=== PATIENT | female | born 1990 | race Caucasian/White ===

== ENCOUNTER 2017-02-07 15:09 | Emergency (ER) | payer OTHER ==
[2017-02-07 15:19] VITALS: BP 117/70
[2017-02-07] MEDS ORDERED: Cyclobenzaprine TAB* 10 MG PO ONE (18:01)
[2017-02-07] MEDS ORDERED: Acetaminophen TAB* 325 MG PO ONE (18:01)
--- NOTE | 2017-02-07 18:11 | ED ---
Back Pain - HPI Summary HPI Summary: Patient hurt her back two nights ago at work when she lifted a bag of food she has lifted many times. She felt a pop and has a pinching pain at her mid back. No SOB, CP, N/T or prior injury. - History of Current Complaint Chief Complaint: EDBackInjuryPain Stated Complaint: BACK INJURY/PAIN Time Seen by Provider: 02/07/17 17:34 Hx Obtained From: Patient Hx Last Menstrual Period: 06/10/15 Onset/Duration: Sudden Onset Onset/Duration: Started Days Ago - 2 Timing: Constant Back Pain Location: Is Discrete @ - mid back Severity Initially: Moderate Severity Currently: Severe Pain Intensity: 9 Character: Aching, Spasmodic Aggravating Symptom(s): Movement Associated Signs And Symptoms: Positive: Negative - Allergies/Home Medications Allergies/Adverse Reactions: Allergies Allergy/AdvReac Type Severity Reaction Status Date / Time Gabapentin [From Neurontin] Allergy Severe Anaphylatic Verified 09/06/15 17:18 Shock Zolpidem [From Ambien] Allergy Severe Anaphylatic Verified 09/06/15 17:18 Shock Penicillins Allergy Intermediate Hives Verified 09/06/15 17:18 Amoxicillin Allergy Hives/Diff. Verified 09/06/15 17:18 Breathing/I tching Ketorolac Tromethamine AdvReac Intermediate Headache Verified 09/06/15 17:18 [From Toradol] Tramadol AdvReac Intermediate Headache Verified 09/06/15 17:18 PMH/Surg Hx/FS Hx/Imm Hx Endocrine/Hematology History: Denies: Hx Anticoagulant Therapy, Hx Diabetes, Hx Thyroid Disease Cardiovascular History: Denies: Hx Congestive Heart Failure, Hx Hypertension, Hx Pacemaker/ICD Respiratory History: Denies: Hx Asthma, Hx Chronic Obstructive Pulmonary Disease (COPD) GI History: Denies: Other GI Disorders History: Reports: Hx Renal Disease - KIDNEY STONE, Other Problems/ Disorders - KIDNEY INFECTIONS Sensory History: Reports: Hx Contacts or Glasses Denies: Hx Hearing Aid Opthamlomology History: Reports: Hx Contacts or Glasses Neurological History: Reports: Other Neuro Impairments/Disorders - 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 Denies: Hx Dementia, Hx Seizures Psychiatric History: Denies: Hx Panic Disorder, Hx Substance Abuse - Surgical History Surgery Procedure, Year, and Place: Ears, as a child - Immunization History Date of Tetanus Vaccine: UTD Date of Influenza Vaccine: Fall 2013 Infectious Disease History: No Infectious Disease History: Denies: Hx Hepatitis, Hx Human Immunodeficiency Virus (HIV), History Other Infectious Disease, Traveled Outside the [place] in Last 30 Days - Family History Known Family History: Positive: None - Social History Occupation: Employed Part-time Lives: With Family Alcohol Use: Rare Substance Use Type: Reports: None Smoking Status (MU): Current Every Day Smoker Amount Used/How Often: about 1/2 ppd Cessation Counseling: Patient Advised to Stop Review of Systems Positive: Myalgia Negative: Paresthesia, Numbness All Other Systems Reviewed And Are Negative: Yes Physical Exam Triage Information Reviewed: Yes Vital Signs On Initial Exam: Initial Vitals Temp Pulse Resp BP Pulse Ox 98.0 F 96 20 117/70 100 02/07/17 15:17 02/07/17 15:17 02/07/17 15:17 02/07/17 15:17 02/07/17 15:17 Vital Signs Reviewed: Yes Appearance: Positive: Well-Appearing, No Pain Distress, Well-Nourished Skin: Positive: Warm, Skin Color Reflects Adequate Perfusion, Dry, Soft Head/Face: Positive: Normal Head/Face Inspection Eyes: Positive: EOMI, LOWELL ENT: Positive: Hearing grossly normal Neck: Positive: Supple, Nontender Respiratory/Lung Sounds: Positive: Clear to Auscultation, Breath Sounds Present Cardiovascular: Positive: RRR Musculoskeletal: Positive: Strength/ROM Intact, Pain @ - TTP bilateral thoracic spine Neurological: Positive: Sensory/Motor Intact, Alert, Oriented to Person Place, Time, NV Bundle Intact Distally, Normal Gait Psychiatric: Positive: Affect/Mood Appropriate AVPU Assessment: Alert Diagnostics - Vital Signs Vital Signs Temp Pulse Resp BP Pulse Ox 02/07/17 15:19 98.0 F 112 20 117/70 100 02/07/17 15:17 98.0 F 96 20 117/70 100 - Laboratory Lab Statement: Any lab studies that have been ordered have been reviewed, and results considered in the medical decision making process. Back Pain Course/Dx - Diagnoses Differential Diagnosis/HQI/PQRI: Positive: Cauda Equina Syndrome, Compressive Cord Syndrome, Herniated Disc, Strain, Sprain Provider Diagnoses: Back pain Discharge - Discharge Plan Condition: Stable Disposition: HOME Prescriptions: Cyclobenzaprine TAB* [Flexeril 10 MG TAB*] 10 mg PO TID PRN #15 tab PRN Reason: Pain Patient Education Materials: Acute Low Back Pain (ED) Forms: *Work Release Referrals: Nieves Azul NP [Primary Care Provider] - Additional Instructions: Please take Tylenol and the muscle relaxer in combination with rest and heat to allow your back to heal. Follow-up with your primary care provider if symptoms persist.
== END 2017-02-07 18:20 | disposition home or self-care (01) ==
LOC: ED 15:09
DX: M54.9 Dorsalgia, unspecified (principal)
CPT/HCPCS: 99282; A9270-GY

== ENCOUNTER 2017-05-18 11:16 | Emergency (ER) | payer OTHER ==
[2017-05-18] MEDS ORDERED: Ondansetron ODT TAB* 4 MG PO ONE (12:59)
[2017-05-18 13:32] LABS: Hematocrit 37 % (35-47); Hemoglobin 12.8 g/dl (12.0-16.0); Mean Corpuscular HGB Conc 34 g/dl (31-36); Mean Corpuscular Hemoglobin 31 pg (27-31); Mean Corpuscular Volume 89 fL (80-97); Mean Platelet Volume 8 um3 (7.4-10.4); Red Blood Count 4.19 10^6/ul (4.0-5.4); Red Cell Distribution Width 13 % (10.5-15); White Blood Count 8.9 10^3/ul (3.5-10.8)
[2017-05-18 13:52] LABS: BUN/Creatinine Ratio 18.1 (8-20); Calcium 8.9 mg/dL (8.6-10.3); EGFR African American 104.5 (>60); EGFR Non-African American 81.3 (>60); Globulin 2.2 g/dL (2-4); Potassium 3.7 mmol/L (3.5-5.0); Total Bilirubin 0.3 mg/dL (0.2-1.0); Total Protein 6.2 g/dL (6.4-8.9)
[2017-05-18 14:16] LABS: TSH (Thyroid Stimulating Horm) 1.38 mcIU/mL (0.34-5.60)
--- NOTE | 2017-05-18 14:16 | ED ---
Throat Pain/Nasal Congestion - HPI Summary HPI Summary: 27 female presents to ED with complaints of having a black tongue that was noticed this morning while at work. Patient states it was not like that yesterday. She denies eating any black foods, new foods, new medications. No PMHx. No medications. No recent antibiotic use. No known history of adrenal issues or vitamin deficiency. Denies diarrhea, dermatitis and memory issues. Denies tongue being sore or painful. No difficulty swallowing or sore throat. Denies fever/chills. Does admit to some nausea, no vomiting. States she had a headache which she took vicodin for on an empty stomach and believes that caused it. No other complaints at this time. Has never had this before. Does smoke cigarettes. - History of Current Complaint Chief Complaint: EDGeneral Time Seen by Provider: 05/18/17 12:10 Hx Obtained From: Patient Onset/Duration: Sudden Onset, Lasting Hours - 2-3 Associated Signs And Symptoms: Positive: Negative, Nasal Discharge - allergy related Cough: None Related History: Seasonal Allergies, Smoking - Allergies/Home Medications Allergies/Adverse Reactions: Allergies Allergy/AdvReac Type Severity Reaction Status Date / Time Gabapentin [From Neurontin] Allergy Severe Anaphylatic Verified 09/06/15 17:18 Shock Zolpidem [From Ambien] Allergy Severe Anaphylatic Verified 09/06/15 17:18 Shock Penicillins Allergy Intermediate Hives Verified 09/06/15 17:18 Amoxicillin Allergy Hives/Diff. Verified 09/06/15 17:18 Breathing/I tching Ketorolac Tromethamine AdvReac Intermediate Headache Verified 09/06/15 17:18 [From Toradol] Tramadol AdvReac Intermediate Headache Verified 09/06/15 17:18 PMH/Surg Hx/FS Hx/Imm Hx Endocrine/Hematology History: Denies: Hx Anticoagulant Therapy, Hx Diabetes, Hx Thyroid Disease Cardiovascular History: Denies: Hx Congestive Heart Failure, Hx Hypertension, Hx Pacemaker/ICD Respiratory History: Denies: Hx Asthma, Hx Chronic Obstructive Pulmonary Disease (COPD) GI History: Denies: Other GI Disorders History: Reports: Hx Renal Disease - KIDNEY STONE, Other Problems/ Disorders - KIDNEY INFECTIONS Sensory History: Reports: Hx Contacts or Glasses Denies: Hx Hearing Aid Opthamlomology History: Reports: Hx Contacts or Glasses Neurological History: Reports: Other Neuro Impairments/Disorders - 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 Denies: Hx Dementia, Hx Seizures Psychiatric History: Denies: Hx Panic Disorder, Hx Substance Abuse - Surgical History Surgery Procedure, Year, and Place: Ears, as a child - Immunization History Date of Tetanus Vaccine: UTD Date of Influenza Vaccine: Fall 2013 Immunizations Up to Date: Yes Infectious Disease History: No Infectious Disease History: Denies: Hx Hepatitis, Hx Human Immunodeficiency Virus (HIV), History Other Infectious Disease, Traveled Outside the [place] in Last 30 Days - Family History Known Family History: Positive: None - Social History Alcohol Use: Rare Substance Use Type: Reports: None Smoking Status (MU): Current Every Day Smoker Type: Cigarettes Amount Used/How Often: about 1/2 ppd Review of Systems Constitutional: Negative Positive: Other - black tongue Cardiovascular: Negative Respiratory: Negative Gastrointestinal: Negative Skin: Negative Neurological: Negative All Other Systems Reviewed And Are Negative: Yes Physical Exam Triage Information Reviewed: Yes Vital Signs On Initial Exam: Initial Vitals Temp Pulse Resp BP Pulse Ox 96.4 F 76 17 114/66 99 05/18/17 11:17 05/18/17 11:17 05/18/17 11:17 05/18/17 11:17 05/18/17 11:17 Vital Signs Reviewed: Yes Appearance: Positive: Well-Appearing, No Pain Distress, Well-Nourished Skin: Positive: Warm, Skin Color Reflects Adequate Perfusion, Dry. Negative: Cold, Soft, Pale, Erythema @ Head/Face: Positive: Normal Head/Face Inspection Eyes: Positive: Conjunctiva Clear ENT: Positive: Hearing grossly normal, Pharynx normal - besides "black hairy" tongue appearance, non tender does not scrap off, no other sores, TMs normal, Trismus. Negative: Tonsillar swelling, Tonsillar exudate Dental: Positive: Gross Decay/Caries @, Dental Fracture @, Other - poor dental hygiene, odor noted. Negative: Cervical Lymphadenopathy, Bleeding, Oropharynx Neck: Positive: Supple, Nontender, No Lymphadenopathy Respiratory/Lung Sounds: Positive: Clear to Auscultation, Breath Sounds Present. Negative: Rales, Rhonchi, Wheezes Cardiovascular: Positive: Normal, RRR, Pulses are Symmetrical in both Upper and Lower Extremities. Negative: Murmur, Rub Abdomen Description: Positive: Nontender Bowel Sounds: Positive: Present Musculoskeletal: Positive: Normal, Strength/ROM Intact Neurological: Positive: Normal, Sensory/Motor Intact, Alert, Oriented to Person Place, Time, Normal Gait - Bell Coma Scale Coma Scale Total: 15 Diagnostics - Vital Signs Vital Signs Temp Pulse Resp BP Pulse Ox 05/18/17 12:03 96.4 F 76 17 114/66 98 05/18/17 11:17 96.4 F 76 17 114/66 99 - Laboratory Lab Results: Lab Results 05/18/17 05/18/17 Range/Units 13:15 13:15 WBC 8.9 (3.5-10.8) 10^3/ul RBC 4.19 (4.0-5.4) 10^6/ul Hgb 12.8 (12.0-16.0) g/dl Hct 37 (35-47) % MCV 89 (80-97) fL MCH 31 (27-31) pg MCHC 34 (31-36) g/dl RDW 13 (10.5-15) % Plt Count 251 (150-450) 10^3/ul MPV 8 (7.4-10.4) um3 Neut % (Auto) 58.8 (38-83) % Lymph % (Auto) 32.3 (25-47) % Dupage % (Auto) 4.5 (1-9) % Eos % (Auto) 3.4 (0-6) % Baso % (Auto) 1.0 (0-2) % Absolute Neuts (auto) 5.2 (1.5-7.7) 10^3/ul Absolute Lymphs (auto) 2.9 (1.0-4.8) 10^3/ul Absolute Monos (auto) 0.4 (0-0.8) 10^3/ul Absolute Eos (auto) 0.3 (0-0.6) 10^3/ul Absolute Basos (auto) 0.1 (0-0.2) 10^3/ul Absolute Nucleated RBC 0 10^3/ul Nucleated RBC % 0 Sodium 136 (133-145) mmol/L Potassium 3.7 (3.5-5.0) mmol/L Chloride 105 (101-111) mmol/L Carbon Dioxide 26 (22-32) mmol/L Anion Gap 5 (2-11) mmol/L BUN 15 (6-24) mg/dL Creatinine 0.83 (0.51-0.95) mg/dL Est GFR ( Amer) 104.5 (>60) Est GFR (Non-Af Amer) 81.3 (>60) BUN/Creatinine Ratio 18.1 (8-20) Glucose 86 (70-100) mg/dL Calcium 8.9 (8.6-10.3) mg/dL Magnesium 2.0 (1.9-2.7) mg/dL Total Bilirubin 0.30 (0.2-1.0) mg/dL AST 17 (13-39) U/L ALT 10 (7-52) U/L Alkaline Phosphatase 30 L (34-104) U/L Total Protein 6.2 L (6.4-8.9) g/dL Albumin 4.0 (3.2-5.2) g/dL Globulin 2.2 (2-4) g/dL Albumin/Globulin Ratio 1.8 (1-3) TSH Pending Result Diagrams: 05/18/17 13:15 05/18/17 13:15 Lab Statement: Any lab studies that have been ordered have been reviewed, and results considered in the medical decision making process. EENT Course/Dx - Course Course Of Treatment: basic labs, TSH and vitamin b3 obtained. labs unremarkable. no concern for emergent etiology. no other symptoms and ruled out causes of black tongue including pellagra, medication side effect, recent antibiotic use, infection. possible poor oral hygeine related. follow up with pcp for further work up and rule out addisons although no other symptoms. aware of worsening signs and symptoms to watch out for. brush and keep good oral hygeine, mouth wash, salt water swishes. - Differential Diagnoses Differential Diagnoses: Fractured Tooth, Other - dental caries, black tongue, pellagra, infection, medication side effect, sandor's - Diagnoses Provider Diagnoses: Black hairy tongue - Provider Notifications Discussed Care Of Patient With: Dr Berg Discharge - Discharge Plan Condition: Stable Disposition: HOME Referrals: Nieves Azul NP [Primary Care Provider] - Additional Instructions: follow up with primary care provider for further testing if symptoms do not improve. keep good oral hygiene. use mouth wash, swish with salt iniguez and brush tongue when brushing teeth. drink plenty of fluids. if you develop new or worsening symptoms please seek medical attention. if your vitamin level is not normal you will be called once results are obtained.
[2017-05-18 14:25] VITALS: BP 111/62
== END 2017-05-18 14:24 | disposition home or self-care (01) ==
LOC: ED 11:16
DX: K14.3 Hypertrophy of tongue papillae (principal); F17.210 Nicotine dependence, cigarettes, uncomplicated
CPT/HCPCS: 36415; 80053; 83735; 84443; 84591; 85025; 99282; A9270-GY

== ENCOUNTER 2017-11-10 15:34 | Emergency (ER) | payer OTHER ==
[2017-11-10 15:48] VITALS: BP 122/83
--- NOTE | 2017-11-10 15:50 | UC ---
Respiratory Complaint HPI - HPI Summary HPI Summary: Pt presents with dry cough that feels "deep" and a mild sore throat for the last 3 days. Overall feels fatigued and "worn out". She has not taken anything OTC for her symptoms. Denies fever, chills, sinus symptoms, SOB, chest pain, abdominal pain, n/v/d/c. She is still smoking daily. - History of Current Complaint Chief Complaint: UCRespiratory Stated Complaint: SOB,RIB PAIN Time Seen by Provider: 11/10/17 15:50 Hx Obtained From: Patient Hx Last Menstrual Period: 10/05/2017 Onset/Duration: Gradual Onset Severity Initially: Severe Severity Currently: Severe Pain Intensity: 8 Pain Scale Used: 0-10 Numeric Character: Cough: Nonproductive - Allergies/Home Medications Allergies/Adverse Reactions: Allergies Allergy/AdvReac Type Severity Reaction Status Date / Time amoxicillin Allergy Hives/Diff. Verified 11/10/17 15:50 Breathing/I tching gabapentin Allergy Anaphylatic Verified 11/10/17 15:49 Shock ketorolac [From Toradol] Allergy Hives Verified 11/10/17 15:51 Penicillins Allergy Hives/Diff. Verified 11/10/17 15:50 Breathing/I tching zolpidem [From Ambien] Allergy Hives Verified 11/10/17 15:50 Home Medications: Home Medications Acetaminophen [Tylenol] 325 mg PO 11/10/17 [History] PMH/Surg Hx/FS Hx/Imm Hx Other History Of: Negative For: Anticoagulant Therapy - Surgical History Surgical History: Yes Surgery Procedure, Year, and Place: Ears, as a child - Family History Known Family History: Positive: None - Social History Occupation: Employed Full-time Lives: With Family Alcohol Use: Rare Substance Use Type: None Smoking Status (MU): Current Every Day Smoker Type: Cigarettes Amount Used/How Often: about 1/2 ppd Household Exposure Type: Cigarettes - Immunization History Most Recent Influenza Vaccination: 2014 Most Recent Tetanus Shot: 2014 Review of Systems Constitutional: Fatigue Skin: Negative Eyes: Negative ENT: Sore Throat Respiratory: Cough Cardiovascular: Negative Gastrointestinal: Negative Neurovascular: Negative Musculoskeletal: Negative Neurological: Negative Psychological: Negative All Other Systems Reviewed And Are Negative: Yes Physical Exam - Summary Physical Exam Summary: GENERAL: NAD. WDWN. No pain distress. SKIN: No rashes, sores, ulcers, masses, lesions. HEENT: Head: AT/NC Eyes: Conjunctiva clear without inflammation or discharge. Ears: Hearing grossly normal. TMs intact, no bulging, erythema, or edema. Nose: Nasal mucosa pink and moist. NTTP maxillary and frontal sinus. Throat: Posterior oropharynx without exudates, erythema, or tonsillar enlargement. Uvula midline. NECK: Supple. Nontender. No lymphadenopathy. CHEST: Mild wheezing throughout. CTAB. No r/r. No accessory muscle use. Breathing comfortably and in no distress. CV: RRR. Without m/r/g. Pulses intact. Brisk cap refill. NEURO: Alert. CN II-XII grossly intact. PSYCH: Age appropriate behavior. Triage Information Reviewed: Yes Vital Signs: Initial Vital Signs Temp 98.0 F 11/10/17 15:42 Pulse 97 11/10/17 15:42 Resp 20 11/10/17 15:42 BP 122/83 11/10/17 15:42 Pulse Ox 97 11/10/17 15:42 Diagnostic Evaluation - Laboratory O2 Sat by Pulse Oximetry: 97 Re-Evaluation - Re-Evaluation First Eval Re-Evaluation Time: 16:35 Change: Improved - Pt reports feeling easier to breath. Respiratory Course/Dx - Course Course Of Treatment: CXR. IMPRESSION: No active cardiopulmonary disease is noted. Duoneb with good improvement. Rx for azithromycin and albuterol - Differential Dx/Diagnosis Provider Diagnoses: Bronchitis Discharge - Discharge Plan Condition: Stable Disposition: HOME Prescriptions: Albuterol HFA INHALER* [Ventolin HFA Inhaler*] 1 - 2 puff INH Q6H PRN #1 mdi PRN Reason: Sob/Wheezing Azithromycin TAB* [Zithromax TAB (Z-KRISTIAN) 250 mg #6 tabs] 2 tab PO .TODAY, THEN 1 DAILY #1 kristian Patient Education Materials: Acute Bronchitis (ED) Forms: *Work Release Referrals: Nieves Azul NP [Primary Care Provider] - Additional Instructions: If you develop a fever, shortness of breath, chest pain, new or worsening symptoms - please call your PCP or go to the ED.
[2017-11-10] MEDS ORDERED: Albuterol/Ipratropium NEB.SOL* Albuterol 2.5 MG/Ipratropium 0.5 MG 3 ML INH ONE (15:56)
--- NOTE | 2017-11-10 16:27 | RAD ---
Indication: Cough. Comparison is made with previous exam dated September 25, 2006 2 views of the chest including dual energy PA views demonstrates no mediastinal shift. Heart is of normal size and configuration. Lung vides demonstrate no pleural fluid, pneumonia or pneumothorax. IMPRESSION: No active cardiopulmonary disease is noted.
== END 2017-11-10 16:45 | disposition home or self-care (01) ==
LOC: UCEAST 15:34
DX: J40 Bronchitis, not specified as acute or chronic (principal); Z88.5 Allergy status to narcotic agent; Z88.0 Allergy status to penicillin; Z88.8 Allergy status to other drugs, medicaments and biological substances; F17.210 Nicotine dependence, cigarettes, uncomplicated
CPT/HCPCS: 71046; 99212; A9270-GY; G0463

== ENCOUNTER 2017-12-27 10:51 | Emergency (ER) | payer OTHER ==
--- NOTE | 2017-12-27 14:02 | RAD ---
HISTORY: Low back pain, history of spurs COMPARISONS: July 31, 2012 TECHNIQUE: Multiple contiguous axial CT scans were obtained of the lumbar spine without intravenous contrast, with coronal and sagittal multiplanar reformations. FINDINGS: SPINAL CANAL: Evaluation of the central canal is limited on CT technique; however, there is no obvious canalicular mass or epidural hemorrhage. ALIGNMENT: There is trace anterolisthesis of L4 on L5. VERTEBRAL BODIES: There are bilateral pars defects at L5. JOINTS: Unremarkable MUSCULATURE: Unremarkable INTERVERTEBRAL DISCS: There is diffuse loss of intervertebral disc height throughout the spine. AXIAL IMAGES: T12-L1: There is no osseous neural foraminal narrowing or central canal stenosis. L1-L2: There is no osseous neural foraminal narrowing or central canal stenosis. L2-L3: There is no osseous neural foraminal narrowing or central canal stenosis. L3-L4: There is mild disc bulge. There is no osseous neural foraminal narrowing or central canal stenosis. L4-L5: There is a broad-based disc bulge that is eccentric to the right. There is no significant neural foraminal narrowing or central canal stenosis. L5-S1: There is a broad-based disc/rolled disc. There is mild bilateral neural foraminal narrowing. There is no significant central canal stenosis. SOFT TISSUES: An IUD is noted. OTHER: None IMPRESSION: 1. 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 2. MILD DEGENERATIVE DISC DISEASE.
[2017-12-27 15:05] VITALS: BP 107/67
--- NOTE | 2017-12-27 15:40 | ED ---
Back Pain - HPI Summary HPI Summary: Patient is a 27-year-old female presenting to the ED with chief complaint of left flank pain. She states she twisted it wrong a few days ago and has been dealing with sharp pains since that time. She denies any numbness or tingling. The pain radiates down into the buttocks and the posterior leg. She has had a second history of such. She took Flexeril at home without relief. Denies any urinary symptoms. I've never heard denies any foot drop or weakness. - History of Current Complaint Chief Complaint: EDBackInjuryPain Stated Complaint: BACK PAIN Time Seen by Provider: 12/27/17 12:18 Hx Obtained From: Patient Hx Last Menstrual Period: 10/05/2017 Onset/Duration: Sudden Onset Onset/Duration: Started Hours Ago Timing: Constant Back Pain Location: Is Discrete @ - Left flank Pain Intensity: 6 Pain Scale Used: 0-10 Numeric Character: Aching Aggravating Symptom(s): Movement, Lifting, Bending, Walking Alleviating Symptom(s): Rest, Position - Risk Factors AAA Risk Factors: Negative TAD Risk Factors: Negative Cauda Equina Risk Factors: Negative Epidural Abscess Risk Factors: Negative - Allergies/Home Medications Allergies/Adverse Reactions: Allergies Allergy/AdvReac Type Severity Reaction Status Date / Time amoxicillin Allergy Hives/Diff. Verified 12/27/17 10:59 Breathing/I tching gabapentin Allergy Anaphylatic Verified 12/27/17 10:59 Shock ketorolac [From Toradol] Allergy Hives Verified 12/27/17 10:59 Penicillins Allergy Hives/Diff. Verified 12/27/17 10:59 Breathing/I tching zolpidem [From Ambien] Allergy Hives Verified 12/27/17 10:59 PMH/Surg Hx/FS Hx/Imm Hx Previously Healthy: Yes Endocrine/Hematology History: Denies: Hx Anticoagulant Therapy, Hx Diabetes, Hx Thyroid Disease Cardiovascular History: Denies: Hx Congestive Heart Failure, Hx Hypertension, Hx Pacemaker/ICD Respiratory History: Denies: Hx Asthma, Hx Chronic Obstructive Pulmonary Disease (COPD) GI History: Denies: Other GI Disorders History: Reports: Hx Renal Disease - KIDNEY STONE, Other Problems/ Disorders - KIDNEY INFECTIONS Sensory History: Reports: Hx Contacts or Glasses Denies: Hx Hearing Aid Opthamlomology History: Reports: Hx Contacts or Glasses Neurological History: Reports: Other Neuro Impairments/Disorders - 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 Denies: Hx Dementia, Hx Seizures Psychiatric History: Denies: Hx Panic Disorder, Hx Substance Abuse - Surgical History Surgery Procedure, Year, and Place: Ears, as a child - Immunization History Date of Tetanus Vaccine: UTD Date of Influenza Vaccine: Fall 2013 Hx Pertussis Vaccination: No Immunizations Up to Date: Unable to Obtain/Confirm Infectious Disease History: No Infectious Disease History: Denies: Hx Hepatitis, Hx Human Immunodeficiency Virus (HIV), History Other Infectious Disease, Traveled Outside the [place] in Last 30 Days - Family History Known Family History: Positive: None - Social History Occupation: Employed Full-time Lives: With Family Alcohol Use: Rare Hx Substance Use: No Substance Use Type: Reports: None Hx Tobacco Use: Yes Smoking Status (MU): Current Every Day Smoker Type: Cigarettes Amount Used/How Often: about 1/2 ppd Review of Systems Constitutional: Negative Negative: Fever, Chills, Fatigue, Skin Diaphoresis Eyes: Negative Cardiovascular: Negative Respiratory: Negative Genitourinary: Negative Positive: no symptoms reported, see HPI Positive: Arthralgia Neurological: Negative All Other Systems Reviewed And Are Negative: Yes Physical Exam Triage Information Reviewed: Yes Vital Signs On Initial Exam: Initial Vitals Temp Pulse Resp BP Pulse Ox 98.0 F 67 16 117/71 98 12/27/17 10:56 12/27/17 10:56 12/27/17 10:56 12/27/17 10:56 12/27/17 10:56 Vital Signs Reviewed: Yes Appearance: Positive: Well-Appearing, No Pain Distress Skin: Positive: Warm, Skin Color Reflects Adequate Perfusion Head/Face: Positive: Normal Head/Face Inspection Eyes: Positive: EOMI, LOWELL, Conjunctiva Clear Neck: Positive: Supple, No Lymphadenopathy Respiratory/Lung Sounds: Positive: Clear to Auscultation, Breath Sounds Present Cardiovascular: Positive: Normal, RRR, Pulses are Symmetrical in both Upper and Lower Extremities Musculoskeletal: Positive: Normal, Strength/ROM Intact, Pain @ - L flank Neurological: Positive: Speech Normal Psychiatric: Positive: Normal Diagnostics - Vital Signs Vital Signs Temp Pulse Resp BP Pulse Ox 12/27/17 15:04 98.7 F 67 16 107/67 100 12/27/17 10:56 98.0 F 67 16 117/71 98 - Laboratory Lab Statement: Any lab studies that have been ordered have been reviewed, and results considered in the medical decision making process. Back Pain Course/Dx - Course Course Of Treatment: During the course of treatment, the patient is evaluated for left flank pain. She denies any urinary symptoms. I have offered a muscle relaxer, but she states she is alert he tried Flexeril without relief. She is in no acute distress on arrival. She states she has been having symptoms like this for several days, not worse or better with movement or better with rest. I have offered a different muscle relaxer for her in the ED and she accepts. She is requesting a CT of her spine due to having "spurs" and spondylosis and feels this may have been getting worse. Denies any bladder or bowel dysfunction. CT obtained which shows spondylosis and spondylolisthesis at L5 to S1. Otherwise normal CT. She is given tizanidine and encouraged moist heat. She is okay at this time for discharge. She will follow-up with her PCP. - Diagnoses Differential Diagnosis/HQI/PQRI: Positive: Strain, Sprain Provider Diagnoses: Muscle spasm Discharge - Sign-Out/Discharge Documenting (check all that apply): Discharge/Admit/Transfer - Discharge Plan Condition: Stable Disposition: HOME Prescriptions: tiZANidine TAB* [Zanaflex TAB*] 2 mg PO TID #15 tab Patient Education Materials: Low Back Strain (ED), Muscle Spasm (ED), Lower Back Exercises (ED) Referrals: [facility] [Primary Care Provider] - Additional Instructions: Please follow up with PCP Tizanidine may be used up to 3 times daily Moist heat to the area Low back exercises Ibuprofen 600 mg 3 times daily - Billing Disposition and Condition Condition: STABLE Disposition: HOME
== END 2017-12-27 15:04 | disposition home or self-care (01) ==
LOC: ED 10:51
DX: M62.838 Other muscle spasm (principal); R10.84 Generalized abdominal pain
CPT/HCPCS: 72131; 99282

== ENCOUNTER 2018-03-07 19:30 | Emergency (ER) | payer OTHER ==
[2018-03-07] MEDS ORDERED: Docusate LIQ* 100 MG/10 ML UDC PO ONE (19:47)
--- NOTE | 2018-03-07 19:57 | ED ---
Throat Pain/Nasal Congestion - HPI Summary HPI Summary: Complains of sudden onset right ear pain while trying to flush ear with bulb and [id number] ear wax softener 30 minutes ago. Pain with movement of jaw. Denies fever, ZIMMERMAN, sore throat, cough, CP, SOB, N/V/V abdominal pain, change in urinary BM. - History of Current Complaint Chief Complaint: EDEarPain Time Seen by Provider: 03/07/18 19:38 Hx Obtained From: Patient Onset/Duration: Sudden Onset Severity: Moderate Associated Signs And Symptoms: Positive: Negative Cough: None - Allergies/Home Medications Allergies/Adverse Reactions: Allergies Allergy/AdvReac Type Severity Reaction Status Date / Time amoxicillin Allergy Hives/Diff. Verified 12/27/17 10:59 Breathing/I tching gabapentin Allergy Anaphylatic Verified 12/27/17 10:59 Shock ketorolac [From Toradol] Allergy Hives Verified 12/27/17 10:59 Penicillins Allergy Hives/Diff. Verified 12/27/17 10:59 Breathing/I tching zolpidem [From Ambien] Allergy Hives Verified 12/27/17 10:59 PMH/Surg Hx/FS Hx/Imm Hx Endocrine/Hematology History: Denies: Hx Anticoagulant Therapy, Hx Diabetes, Hx Thyroid Disease Cardiovascular History: Denies: Hx Congestive Heart Failure, Hx Hypertension, Hx Pacemaker/ICD Respiratory History: Denies: Hx Asthma, Hx Chronic Obstructive Pulmonary Disease (COPD) GI History: Denies: Other GI Disorders History: Reports: Hx Renal Disease - KIDNEY STONE, Other Problems/ Disorders - KIDNEY INFECTIONS Sensory History: Reports: Hx Contacts or Glasses Denies: Hx Hearing Aid Opthamlomology History: Reports: Hx Contacts or Glasses Neurological History: Reports: Other Neuro Impairments/Disorders - 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 Denies: Hx Dementia, Hx Seizures Psychiatric History: Denies: Hx Panic Disorder, Hx Substance Abuse - Surgical History Surgery Procedure, Year, and Place: Ears, as a child - Immunization History Date of Tetanus Vaccine: UTD Date of Influenza Vaccine: Fall 2013 Infectious Disease History: No Infectious Disease History: Denies: Hx Hepatitis, Hx Human Immunodeficiency Virus (HIV), History Other Infectious Disease, Traveled Outside the [place] in Last 30 Days - Family History Known Family History: Positive: None - Social History Alcohol Use: Rare Hx Substance Use: No Substance Use Type: Reports: None Hx Tobacco Use: Yes Smoking Status (MU): Current Every Day Smoker Type: Cigarettes Amount Used/How Often: about 1/2 ppd Review of Systems Constitutional: Negative Eyes: Negative Positive: Ear Ache Cardiovascular: Negative Respiratory: Negative Gastrointestinal: Negative Genitourinary: Negative Musculoskeletal: Negative Skin: Negative Neurological: Negative Psychological: Normal All Other Systems Reviewed And Are Negative: Yes Physical Exam - Summary Physical Exam Summary: Right ear appears normal on exam. Tenderness to external ear when scope. TM appears normal, no swelling or purulent discharge noted in external canal. Wax present deep in the ear canal. Triage Information Reviewed: Yes Vital Signs On Initial Exam: Initial Vitals Temp Pulse Resp BP Pulse Ox 97.4 F 72 22 120/92 100 03/07/18 19:33 03/07/18 19:33 03/07/18 19:33 03/07/18 19:33 03/07/18 19:33 Vital Signs Reviewed: Yes Appearance: Positive: Well-Appearing Skin: Positive: Warm Head/Face: Positive: Normal Head/Face Inspection Eyes: Positive: Normal ENT: Positive: TMs normal, Other - cerumen deep in rt ear canal Neck: Positive: Supple Respiratory/Lung Sounds: Positive: Clear to Auscultation Cardiovascular: Positive: Normal Abdomen Description: Positive: Nontender Musculoskeletal: Positive: Normal Neurological: Positive: Normal Psychiatric: Positive: Normal AVPU Assessment: Alert - Bell Coma Scale Best Eye Response: 4 - Spontaneous Best Motor Response: 6 - Obeys Commands Best Verbal Response: 5 - Oriented Coma Scale Total: 15 Diagnostics - Vital Signs Vital Signs Temp Pulse Resp BP Pulse Ox 03/07/18 19:33 97.4 F 72 22 120/92 100 - Laboratory Lab Statement: Any lab studies that have been ordered have been reviewed, and results considered in the medical decision making process. Re-Evaluation - Re-Evaluation 1 Re-Evaluation Time: 21:53 Comment: wax removed from esar. provided no relief. EENT Course/Dx - Course Course Of Treatment: Complains of sudden onset right ear pain while trying to flush ear with bulb and [id number] ear wax softener 30 minutes ago. Pain with movement of jaw. Denies fever, ZIMMERMAN, sore throat, cough, CP, SOB, N/V/V abdominal pain, change in urinary BM. Right ear appears normal on exam. Tenderness to external ear when scope. TM appears normal, no swelling or purulent discharge noted in external canal. Wax present deep in the ear canal. removal of ear wax providefd no relief. Ciprodex and azithromycin here in ED. RX for azithromycin and tramadol. Follow up with ENT Dr Boss - Diagnoses Provider Diagnoses: Otitis externa Discharge - Sign-Out/Discharge Documenting (check all that apply): Discharge/Admit/Transfer - Discharge Plan Condition: Stable Disposition: HOME Prescriptions: Azithromycin 250 mg PO DAILY 5 Days #4 tablet Tramadol HCl 50 mg PO TID 4 Days #6 tablet MDD 3 Referrals: Mary Ramirez NP [Primary Care Provider] - Jakub Boss MD [Medical Doctor] - Additional Instructions: 3 antibiotic drops in right ear twice a day. Take oral antibiotics as directed. Follow up with ENT Dr Boss tomorrow if you do not have ENT already. Return to the ED for any new or worsening symptoms. - Billing Disposition and Condition Condition: STABLE Disposition: Home
[2018-03-07] MEDS ORDERED: traMADol TAB* 50 MG PO ONE (21:45)
[2018-03-07] MEDS ORDERED: Azithromycin TAB* 250 MG PO ONE (21:50)
[2018-03-07] MEDS ORDERED: Ciproflox/Dexameth OTIC.SUSP* 7.5 ML BTL RIGHT EAR ONE (21:56)
[2018-03-07 22:16] VITALS: BP 137/84
== END 2018-03-07 22:14 | disposition home or self-care (01) ==
LOC: ED 19:30
DX: H60.91 Unspecified otitis externa, right ear (principal); F17.210 Nicotine dependence, cigarettes, uncomplicated; Z88.3 Allergy status to other anti-infective agents; Z88.8 Allergy status to other drugs, medicaments and biological substances; Z88.0 Allergy status to penicillin
CPT/HCPCS: 99282; A9270-GY

== ENCOUNTER 2018-04-01 00:03 | Emergency (ER) | payer OTHER ==
[2018-04-01] MEDS ORDERED: HYDROcodone/ACETAMIN 5-325 MG* 1 TAB PO ONE (00:27)
--- NOTE | 2018-04-01 00:33 | ED ---
Upper Extremity Pain - HPI Summary HPI Summary: Complains of burn to dorsal surface of right hand while cleaning the grill. Patient states she put water on a hot grill and it bubbled up and the bubble splashed on her hand. Denies any other injury. Pain 8/10. Denies any loss of sensation or function. - History of Current Complaint Chief Complaint: EDGeneral Stated Complaint: RT HAND INJURY Time Seen by Provider: 04/01/18 00:24 Hx Obtained From: Patient Hx Last Menstrual Period: 10/05/2017 Mechanism Of Injury: Other Onset/Duration: Started Minutes Ago Timing: Constant Severity Initially: Severe Severity Currently: Severe Pain Location: Hand Character: Sharp, Burning Aggravating Factor(s): Movement Alleviating Factor(s): Ice Associated Signs & Symptoms: Positive: Redness - Allergies/Home Medications Allergies/Adverse Reactions: Allergies Allergy/AdvReac Type Severity Reaction Status Date / Time amoxicillin Allergy Hives/Diff. Verified 04/01/18 00:10 Breathing/I tching gabapentin Allergy Anaphylatic Verified 04/01/18 00:10 Shock ketorolac [From Toradol] Allergy Hives Verified 04/01/18 00:10 Penicillins Allergy Hives/Diff. Verified 04/01/18 00:10 Breathing/I tching zolpidem [From Ambien] Allergy Hives Verified 04/01/18 00:10 PMH/Surg Hx/FS Hx/Imm Hx Endocrine/Hematology History: Denies: Hx Anticoagulant Therapy, Hx Diabetes, Hx Thyroid Disease Cardiovascular History: Denies: Hx Congestive Heart Failure, Hx Hypertension, Hx Pacemaker/ICD Respiratory History: Denies: Hx Asthma, Hx Chronic Obstructive Pulmonary Disease (COPD) GI History: Denies: Other GI Disorders History: Reports: Hx Renal Disease - KIDNEY STONE, Other Problems/ Disorders - KIDNEY INFECTIONS Sensory History: Reports: Hx Contacts or Glasses Denies: Hx Hearing Aid Opthamlomology History: Reports: Hx Contacts or Glasses Neurological History: Reports: Other Neuro Impairments/Disorders - 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 Denies: Hx Dementia, Hx Seizures Psychiatric History: Denies: Hx Panic Disorder, Hx Substance Abuse - Surgical History Surgery Procedure, Year, and Place: Ears, as a child - Immunization History Date of Tetanus Vaccine: UTD Date of Influenza Vaccine: Fall 2013 Infectious Disease History: No Infectious Disease History: Denies: Hx Hepatitis, Hx Human Immunodeficiency Virus (HIV), History Other Infectious Disease, Traveled Outside the [place] in Last 30 Days - Family History Known Family History: Positive: None - Social History Alcohol Use: Rare Hx Substance Use: No Substance Use Type: Reports: None Hx Tobacco Use: Yes Smoking Status (MU): Current Every Day Smoker Type: Cigarettes Amount Used/How Often: about 1/2 ppd Review of Systems Constitutional: Negative Eyes: Negative ENT: Negative Cardiovascular: Negative Respiratory: Negative Gastrointestinal: Negative Genitourinary: Negative Musculoskeletal: Negative Skin: Other Neurological: Negative Psychological: Normal All Other Systems Reviewed And Are Negative: Yes Physical Exam - Summary Physical Exam Summary: Superficial burn to dorsal surface of right thumb, right hand and right third and fourth digits. Redness only, no blistering, whiteness or eschar. Blanchable. Sensation intact. PMS intact distally Triage Information Reviewed: Yes Vital Signs On Initial Exam: Initial Vitals Temp Pulse Resp BP Pulse Ox 98.0 F 108 20 158/96 100 04/01/18 00:04 04/01/18 00:04 04/01/18 00:04 04/01/18 00:04 04/01/18 00:04 Vital Signs Reviewed: Yes Appearance: Positive: Well-Appearing Skin: Positive: Warm Head/Face: Positive: Normal Head/Face Inspection Eyes: Positive: Normal Neck: Positive: Supple Respiratory/Lung Sounds: Positive: Clear to Auscultation Cardiovascular: Positive: Normal Abdomen Description: Positive: Nontender Musculoskeletal: Positive: Normal Neurological: Positive: Normal Psychiatric: Positive: Normal AVPU Assessment: Alert - Bell Coma Scale Best Eye Response: 4 - Spontaneous Best Motor Response: 6 - Obeys Commands Best Verbal Response: 5 - Oriented Coma Scale Total: 15 Diagnostics - Vital Signs Vital Signs Temp Pulse Resp BP Pulse Ox 04/01/18 00:04 98.0 F 108 20 158/96 100 - Laboratory Lab Statement: Any lab studies that have been ordered have been reviewed, and results considered in the medical decision making process. Course/Dx - Course Course Of Treatment: Complains of burn to dorsal surface of right hand while cleaning the grill. Patient states she put water on a hot grill and it bubbled up and the bubble splashed on her hand. Denies any other injury. Pain 8/10. Denies any loss of sensation or function. Superficial burn to dorsal surface of right thumb, right hand and right third and fourth digits. Redness only, no blistering, whiteness or eschar. Blanchable. Sensation intact. PMS intact distally. Skin lotion and bacitracin applied to area of redness and wrapped. Rx for hydrocodone. Use lotion or olive oil or aloe vera. - Diagnoses Provider Diagnoses: Superficial burn of back of hand Discharge - Sign-Out/Discharge Documenting (check all that apply): Patient Departure - Discharge Plan Condition: Stable Disposition: HOME Prescriptions: HYDROcodone/ACETAMIN 5-325 MG* [Butler 5-325 TAB*] 1 tab PO Q6H PRN 2 Days #6 tab MDD 3 tabs PRN Reason: Pain Patient Education Materials: Superficial Burn (ED) Forms: *Work Release Referrals: Mary Ramirez [facility] [Primary Care Provider] - Additional Instructions: Use lotion, or olive oil, or aloe vera to help skin healed. Keep protected well healing. Return to the ED for any new or worsening symptoms - Billing Disposition and Condition Condition: STABLE Disposition: Home
[2018-04-01 01:09] VITALS: BP 129/68
== END 2018-04-01 01:05 | disposition home or self-care (01) ==
LOC: ED 00:03
DX: T23.161A Burn of first degree of back of right hand, initial encounter (principal); X12.XXXA Contact with other hot fluids, initial encounter; Y93.E9 Activity, other interior property and clothing maintenance; Y92.008 Other place in unspecified non-institutional (private) residence as the place of occurrence of the external cause
CPT/HCPCS: 16000; 99282

== ENCOUNTER 2019-05-30 23:12 | Emergency (ER) | payer OTHER ==
--- NOTE | 2019-05-31 02:59 | ED ---
Lower Extremity - HPI Summary HPI Summary: 29 year old F presenting to [facility] accompanied by male clin application specialist complains of left knee swelling and left knee pain rated 7/10 in severity since 13:00 yesterday 05/30/19, worse since taking ibuprofen at 15:00 yesterday 05/30/19. Patient states she feels like there is a burst bubble in her left knee. 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 Denies trauma/injury to the left knee. Symptoms aggravated by bending and palpation. Symptoms alleviated by nothing. - History of Current Complaint Chief Complaint: EDExtremityLower Stated Complaint: KNEE PAIN PER PT Time Seen by Provider: 05/31/19 02:41 Hx Obtained From: Patient Onset/Duration: Hours Severity Currently: Severe Pain Intensity: 8 Pain Scale Used: 0-10 Numeric Timing: Constant Location: Is Discrete @ - left knee Aggravating Factor(s): Other - bending and palpation Alleviating Factor(s): Nothing - Allergies/Home Medications Allergies/Adverse Reactions: Allergies Allergy/AdvReac Type Severity Reaction Status Date / Time amoxicillin Allergy Hives/Diff. Verified 04/01/18 00:10 Breathing/I tching gabapentin Allergy Anaphylatic Verified 04/01/18 00:10 Shock ketorolac [From Toradol] Allergy Hives Verified 04/01/18 00:10 Penicillins Allergy Hives/Diff. Verified 04/01/18 00:10 Breathing/I tching zolpidem [From Ambien] Allergy Hives Verified 04/01/18 00:10 Home Medications: Home Medications NK [No Home Medications Reported] 05/30/19 [History Confirmed 05/30/19] PMH/Surg Hx/FS Hx/Imm Hx Endocrine/Hematology History: Denies: Hx Anticoagulant Therapy, Hx Diabetes, Hx Thyroid Disease Cardiovascular History: Denies: Hx Congestive Heart Failure, Hx Hypertension, Hx Pacemaker/ICD Respiratory History: Denies: Hx Asthma, Hx Chronic Obstructive Pulmonary Disease (COPD) GI History: Denies: Other GI Disorders History: Reports: Hx Renal Disease - KIDNEY STONE, Other Problems/ Disorders - KIDNEY INFECTIONS Sensory History: Reports: Hx Contacts or Glasses Denies: Hx Hearing Aid Opthamlomology History: Reports: Hx Contacts or Glasses Neurological History: Reports: Other Neuro Impairments/Disorders - 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 Denies: Hx Dementia, Hx Seizures Psychiatric History: Denies: Hx Panic Disorder, Hx Substance Abuse - Surgical History Surgery Procedure, Year, and Place: Ears, as a child - Immunization History Date of Tetanus Vaccine: UTD Date of Influenza Vaccine: Fall 2013 Infectious Disease History: No Infectious Disease History: Denies: Hx Hepatitis, Hx Human Immunodeficiency Virus (HIV), History Other Infectious Disease, Traveled Outside the [place] in Last 30 Days - Family History Known Family History: Positive: Other - bipolar disorder - Social History Alcohol Use: Rare Hx Substance Use: No Substance Use Type: Reports: None Hx Tobacco Use: Yes Smoking Status (MU): Current Every Day Smoker Type: Cigarettes Amount Used/How Often: about 1/2 ppd Review of Systems - ROS Summary Review of Systems Summary: Home Medications Medication Instructions Recorded Confirmed Type NK [No Home Medications Reported] 05/30/19 05/30/19 History Negative: Fever Positive: Other - left knee pain, left knee swelling All Other Systems Reviewed And Are Negative: Yes Physical Exam - Summary Physical Exam Summary: General: Well-developed, Well-nourished FEMALE. No acute distress. HEENT: Normocephalic, Atraumatic. Eyes: Conjuctiva normal, PERRL. Ears: TMs within normal limits. Nares: (-) discharge, (-) erythema. Oropharynx: Clear, mucous membranes moist, (-) exudates. Neck: Soft, FROM, (-) lymphadenopathy, (-) thyromegaly, (-) JVD. Cardiovascular: Normal sinus rhythm, (-) murmur. Lungs: Clear to auscultation bilaterally (-) wheezes, (-) rales, (-) rhonchi. Abdomen: Soft, non-tender, non-distended, (-) organomegaly, normal bowel sounds. Back: (-) CVA tenderness Extremities: Mild swelling below the patella, diffuse tenderness over the patella on the medial and lateral and inferior aspects, full exam limited secondary to pain, distal pulses are equal, good capillary refill, limited ROM of the left leg Skin: Warm, dry, (-) rash. Neuro: Alert and oriented x3, no focal deficits. Psychiatric: Mood normal, affect normal. Triage Information Reviewed: Yes Vital Signs On Initial Exam: Initial Vitals Temp Pulse Resp BP Pulse Ox 98.3 F 90 18 120/77 98 05/30/19 23:18 05/30/19 23:18 05/30/19 23:18 05/30/19 23:18 05/30/19 23:18 Vital Signs Reviewed: Yes Diagnostics - Vital Signs Vital Signs Temp Pulse Resp BP Pulse Ox 05/31/19 01:29 98.5 F 75 18 111/67 98 05/30/19 23:18 98.3 F 90 18 120/77 98 - Laboratory Lab Statement: Any lab studies that have been ordered have been reviewed, and results considered in the medical decision making process. - Radiology Left knee x-ray Radiology Interpretation Completed By: ED Physician Summary of Radiographic Findings: No fracture. Pending official report. Lower Extremity Course/Dx - Course Course Of Treatment: 29 year old F presenting to [facility] accompanied by male clin application specialist complains of left knee swelling and left knee pain rated 7/10 in severity since 13:00 yesterday 05/30/19, worse since taking ibuprofen at 15:00 yesterday 05/30/19. No trauma/injury to left knee. Physical exam findings: mild swelling below the patella, diffuse tenderness over the patella on the medial and lateral and inferior aspects, full exam limited secondary to pain, distal pulses are equal, good capillary refill, limited ROM of the left leg. Left knee x-ray is negative for fracture. In the ED course, the patient was given ibuprofen 400 mg PO. Patient states she has crutches at home. Patient states that she has work off tomorrow, and her boss is agreeable to her doing light work. Patient was advise dot limit weight bearing and to use crutches. She was told to elevate her knee and to use ice and ibuprofen (2 tablets, 3 times a day , with food) to manage the pain. She was instructed to follow up with orthopedics in 3 days. Patient was instructed to return to Emergency Department for new or worsening symptoms. Patient understands and is agreeable to this plan. - Diagnoses Provider Diagnoses: Knee pain Discharge ED - Sign-Out/Discharge Documenting (check all that apply): Patient Departure - Discharge Patient Received Moderate/Deep Sedation with Procedure: No - Discharge Plan Condition: Stable Disposition: HOME Patient Education Materials: Knee Pain (ED) Referrals: Jeremiah Live MD [Medical Doctor] - Additional Instructions: Limit weight bearing. Use crutches. Elevate your knee. Use ice and ibuprofen (2 tablets, 3 times a day, with food) to manage the pain. Please follow up with Dr. Live within 3 days. Please return to Emergency Department for any new or worsening symptoms. - Billing Disposition and Condition Condition: STABLE Disposition: Home - Attestation Statements Document Initiated by Vitaly: Yes Documenting Scribe: Alicia Kapadia Provider For Whom Vitaly is Documenting (Include Credential): Sue Gordon MD Scribe Attestation: IAlicia, scribed for Sue Gordon MD on 05/31/19 at 0515. Scribe Documentation Reviewed: Yes Provider Attestation: The documentation as recorded by the Alicia pizano accurately reflects the service I personally performed and the decisions made by , Sue Gordon MD Status of Scribe Document: Viewed
[2019-05-31] MEDS ORDERED: Ibuprofen TAB* 400 MG PO ONE (03:33)
[2019-05-31 03:49] VITALS: BP 121/95
== END 2019-05-31 03:48 | disposition home or self-care (01) ==
LOC: ED 23:12
DX: M25.562 Pain in left knee (principal); F17.210 Nicotine dependence, cigarettes, uncomplicated; Z88.1 Allergy status to other antibiotic agents; Z88.5 Allergy status to narcotic agent; Z88.0 Allergy status to penicillin; Z88.8 Allergy status to other drugs, medicaments and biological substances
CPT/HCPCS: 99283; A9270-GY